=== PATIENT | female | born 1950 | race Caucasian/White ===

== ENCOUNTER → 2017-08-10 | Outpatient (CLI) | payer BC ==
[~2017-08-10] MED LIST: CALC500C70 PO; CIPR-255 PO; SULF400T7 PO; SUMA50TA15 PO
--- NOTE | 2017-08-11 07:46 | MAMMOGRAPHY REPORT ---
BILATERAL DIGITAL SCREENING MAMMOGRAM TOMOSYNTHESIS WITH CAD: 08/10/2017 CLINICAL HISTORY: Routine screening. Patient has no complaints. TECHNIQUE: Breast tomosynthesis in addition to standard 2D mammography was performed. Current study was also evaluated with a Computer Aided Detection (CAD) system. COMPARISON: Comparison is made to exams dated: 08/09/2016 mammogram, 08/05/2015 mammogram, 07/04/2014 mammogram, 07/02/2013 mammogram, 06/30/2012 mammogram, and 12/15/2010 mammogram - [facility] enter. BREAST COMPOSITION: There are scattered areas of fibroglandular density in both breasts. FINDINGS: An asymmetry in the posterior right breast along the posterior nipple line on the CC view a ppears similar on all available prior mammograms dating back to at least 2006, therefore likely benig n. No new suspicious mass, architectural distortion or cluster of microcalcifications is seen. IMPRESSION: ACR BI-RADS CATEGORY 1: NEGATIVE There is no mammographic evidence of malignancy. A 1 year screening mammogram is recommended. The pa tient will receive written notification of the results. Approximately 10% of breast cancers are not detected with mammography. A negative mammographic report should not delay biopsy if a clinically suggestive mass is present. Dee Gaston M.D. ay/:08/10/2017 08:56:28 Concrete Gun Operator: Wendy Jacinto, [facility] letter sent: Normal 1/2 BI-RADS Code: ACR BI-RADS Category 1: Negative
== END | disposition home or self-care (01) ==
LOC: C.MAMM 07:53
PROVIDERS: ATTEND Family Medicine
DX: Z12.31 Encounter for screening mammogram for malignant neoplasm of breast (principal)

== ENCOUNTER 2019-07-11 09:56 | Inpatient (IN) ==
--- NOTE | 2019-07-10 14:36 | Anesthesiology Consultation ---
Date of Service July 10, 2019 Assessment & Plan (1) Kidney stone: (2) Encounter for pre-operative examination: Chart Review Chart Review: Acceptable Risk for Surgery and Pending: Refer to Additional Notes / Consult section (Testing to be done AM of surgery CBC,PRP,EKG) Consults Requested none History Surgery Operation Date: 07/11/19 12:00 Proposed Procedures p Right Trimalleolar Ankle Fracture External Fixator Placement, - James Rivero MD s Possible Open Reduction Internal Fixation - James Rivero MD Allergies Allergy/AdvReac Type Severity Reaction Status Date / Time shellfish derived Allergy Unknown Unknown Verified 07/10/19 10:44 morphine AdvReac Severe nausea/vomi Unverified 07/10/19 11:29 ting Medications Home Medications Medication Instructions Recorded Confirmed Last Taken doxycycline hyclate 50 mg PO BID 07/07/19 07/10/19 Unknown tramadol [Ultram] 50 mg PO Q8H PRN #14 tab 07/07/19 07/10/19 Unknown Past Medical History Medical History Kidney stone (Chronic) Pyelonephritis (Chronic) Depression GERD (gastroesophageal reflux disease) Migraine headache Psoriasis Sjogrens syndrome Past Family History Family History Other No significant family history Past Surgical History Surgical History History of dental surgery History of facial surgery History of shoulder surgery Social History Smoking Status: Never smoker Hx Substance Use: No substance use type: does not use
[~2019-07-11 09:56] MED LIST changes: -CALC500C70 PO; +CEFAZOLIN 2000MG 2,000 MG/15 ML SYR IV SCH; -CIPR-255 PO; +LR 15ML/HR IV SCH; +ROPIVACAINE 0.5% 5 MG/ML 30 ML VIAL ONE; -SULF400T7 PO; -SUMA50TA15 PO
[2019-07-11] MEDS ORDERED: ROCURONIUM BROMIDE 10 MG/ML 5 ML VIAL ONE (11:13)
[2019-07-11] MEDS ORDERED: PROPOFOL IV EMULSION 10 MG/ML 20 ML VIAL IV ONE (11:13)
[2019-07-11] MEDS ORDERED: LIDOCAINE HCL 2% 2 ML VIAL/AMP(20MG/ML) INFIL ONE (11:13)
[2019-07-11] MEDS ORDERED: fentaNYL citrate 100 MCG/2 ML VIAL ONE ×2 (11:13→13:03)
[2019-07-11] MEDS ORDERED: MIDAZOLAM HCL 1 MG/ML 2ML VIAL ONE ×2 (11:13→11:48)
[2019-07-11] MEDS ORDERED: ONDANSETRON INJ 2 MG/ML 2 ML VIAL ONE ×2 (11:13→14:01)
[2019-07-11] MEDS ORDERED: LABETALOL HCL IV 5 MG/ML 20ML IV PRN (11:16)
[2019-07-11] MEDS ORDERED: ONDANSETRON INJ 2 MG/ML 2 ML VIAL IV PRN ×2 (11:16→14:18)
[2019-07-11] MEDS ORDERED: ATROPINE SULFATE 0.1 MG/ML 10ML SYR IV PRN (11:16)
[2019-07-11] MEDS ORDERED: KETOROLAC 30 MG/ML VIAL IV PRN (11:16)
[2019-07-11 11:19] LABS: BUN Creatinine Ratio 19.9 (10-20); Calcium 9.5 mg/dl (8.5-10.1); Creatinine Clr Calc Pharmacy 57.2 ml/min; Est GFR (African American) 72.7; Est GFR (Non-African American) 62.7; Potassium 3.9 mmol/L (3.5-5.1)
[2019-07-11 11:21] LABS: Hematocrit (blood only) 36.9 % (37-47); Hemoglobin 12.5 g/dL (12.0-16.0); Mean Corpuscular Hemoglobin 31.3 pg (25-34); Mean Corpuscular Volume 92.5 fL (80-100); Mean Platelet Volume 10.2 fL (7.4-10.4); Platelet Count 150 K/uL (130-400); RDW Standard Deviation 43.8 fL (36.4-46.3); Red Blood Count 3.99 M/uL (4.2-5.4); White Blood Count 4.72 K/uL (4.8-10.8)
[2019-07-11 11:22] LABS: Mean Corpuscular Hgb Conc 33.9 g/dL (32-36)
[2019-07-11] MEDS ORDERED: HYDROmorphone INJ 2 MG/ML SYR/VIAL ONE (11:32)
--- NOTE | 2019-07-11 11:50 | History & Physical Bridge Note ---
Date of Service July 11, 2019 History & Physical Bridge Note I have examined the patient, reviewed the History & Physical and in the interval since the performance of the History & Physical I have noted the following changes of clinical significance: no changes noted
[2019-07-11] MEDS ORDERED: DEXAMETHASONE SOD INJ 4 MG/ML VIAL ONE (14:01)
--- NOTE | 2019-07-11 14:14 | Post Operative Brief Note ---
Immediate Post Op Note v1 Date of Surgery July 11, 2019 Pre & Post Diagnosis Operation Date: 07/11/19 12:00 Pre-Op Diagnosis: Right Trimalleolar Ankle Fracture Post-Op Diagnosis: Right Trimalleolar Ankle Fracture Procedure Operation Date: 07/11/19 12:00 Actual Procedures p Right Trimalleolar Ankle Fracture External Fixator Placement(Right) - James Rivero MD Surgeon James Rivero MD Key Account Manager Azael Montgomery MD and WARNER Andrews PA-C Estimated Blood Loss 5 Findings Consistent with Post-Op Diagnosis Fluids 600 cc Anesthesia Type General Complications none Disposition Accompanied Patient To Recovery: No Disposition: Recovery Room
[2019-07-11] MEDS ORDERED: ALUMINUM/MAGNESIUM SUSP 30 ML UDC PO PRN (14:18)
[2019-07-11] MEDS ORDERED: NALOXONE HCL 0.4 MG/1 ML VIAL/CARP IV PRN (14:18)
[2019-07-11] MEDS ORDERED: OXYCODONE HCL IR 5 MG TAB (IMMEDIATE RELEASE) PO PRN (14:18)
[2019-07-11] MEDS ORDERED: TRAMADOL HCL 50 MG TABLET PO PRN ×2 (14:18→14:27)
[2019-07-11] MEDS ORDERED: MAGNESIUM HYDROXIDE SUSP 30 ML UDC PO PRN (14:18)
[2019-07-11] MEDS ORDERED: BISACODYL 10 MG SUPP PR PRN (14:18)
[2019-07-11] MEDS ORDERED: METOCLOPRAMIDE HCL INJ 5 MG/ML 2 ML VIAL IV PRN (14:18)
[2019-07-11] MEDS ORDERED: DiphenhydrAMINE HCL 50 MG/ML VIAL IV PRN (14:18)
--- NOTE | 2019-07-11 14:18 | Operative Report ---
Post Operative Report Pre & Post Diagnosis Operation Date: 07/11/19 12:00 Pre-Op Diagnosis: Right Trimalleolar Ankle Fracture Post-Op Diagnosis: Right Trimalleolar Ankle Fracture Procedure Operation Date: 07/11/19 12:00 Actual Procedures p Right Trimalleolar Ankle Fracture External Fixator Placement(Right) - James Rivero MD Surgeon James Rivero Community Health Worker Azael Montgomery MD and WARNER Andrews PA-C Estimated Blood Loss 5 Findings Consistent with Post-Op Diagnosis Specimens none Complications none Disposition Accompanied Patient To Recovery: Yes Disposition: Recovery Room Description of Procedure I was present during the entire case assisting with positioning and dressing application. Please see Dr. Rivero procedure note for specifics of the case. I attest to the content of the Intraoperative Record and any orders documented therein. Any exceptions are noted below.
[2019-07-11] MEDS ORDERED: NON-FORMULARY MEDICATION (Docusate Sodium [Stool Softener] 50 MG) PO PRN (14:27)
--- NOTE | 2019-07-11 14:27 | Operative Report ---
Post Operative Report Pre & Post Diagnosis Operation Date: 07/11/19 12:00 Pre-Op Diagnosis: Right Trimalleolar Ankle Fracture Post-Op Diagnosis: Right Trimalleolar Ankle Fracture Procedure Operation Date: 07/11/19 12:00 Actual Procedures p Right Trimalleolar Ankle Fracture External Fixator Placement(Right) - James Rivero MD Surgeon James Rivero MD Research Computing Specialist Azael Montgomery MD and WARNER Andrews PA-C Estimated Blood Loss 5 Findings Consistent with Post-Op Diagnosis Specimens None Complications none Disposition Accompanied Patient To Recovery: Yes Disposition: Recovery Room Indications 68 years a pleasant woman with right ankle fracture dislocation Description of Procedure Supine position, standard prep and drape, timeout for patient safety, under fluoroscopic control, external fixator of right ankle was performed. Please see Dr. Rivero's procedure notes for specific details. I was present throughout the procedure and assisted for transferring the patient to PACU in stable condition. I attest to the content of the Intraoperative Record and any orders documented therein. Any exceptions are noted below.
[2019-07-11] MEDS ORDERED: SODIUM CHLORIDE 0.9% 1000ML 1,000 ML IV SCH (14:30)
--- NOTE | 2019-07-11 14:30 | Fluoroscopy Report ---
FL ankle RT min 3V RTN CLINICAL HISTORY: 68 years-old Female presenting with ORIF RIGHT TRIMALLEOLAR FX, EX FIX VS. ORIF. TECHNIQUE: 4 fluoroscopic image(s) recorded as part of an intraoperative procedure. COMPARISON: Plain radiographs from 07/10/2019. FINDINGS/IMPRESSION: There has been interval reduction of the prior medially displaced tibia. Slight residual one half sha ft width displacement at the distal metaphyseal fracture of the fibula is unchanged. The ankle mortis e does not demonstrate residual malalignment. Posterior malleolar fracture also noted as well as a tr ansversely oriented medial malleolar fracture. Please see surgical report for further details. Fluoroscopy dosage (mGy): 2.10. Fluoroscopy time: 64.8 seconds. Number or time of high level fluoroscopy (HLF), digital spot, or digital subtraction images: 0. Electronically signed by: James Cleary M.D. 07/11/2019 2:28 PM
[2019-07-11] MEDS: HYDROmorphone INJ 1 MG/ML SYRINGE IV PRN ×4 (14:49→15:04)
--- NOTE | 2019-07-11 14:53 | XRay Report ---
XR ankle RT 2V CLINICAL HISTORY: post op External fixation Rt ankle (PACU) COMPARISON: 07/10/2019 DISCUSSION: Evidence for placement of an external fixator. Trimalleolar fractures again noted. Improv ed alignment of the ankle mortise. Persistent distraction of the distal fibular fracture by an estima rachel 8 mm. There is no evidence for soft tissue swelling. IMPRESSION: Improved alignment post placement of an external fixator. Persistent distraction of the d istal fibular fracture The above report was generated using voice recognition software. It may contain grammatical, syntax or spelling errors. Electronically signed by: Bj Weaver M.D. 07/11/2019 2:52 PM
--- NOTE | 2019-07-11 15:20 | Operative Report ---
DATE OF OPERATION: 07/11/2019 PREOPERATIVE DIAGNOSIS: Unstable trimalleolar right ankle fracture. POSTOPERATIVE DIAGNOSIS: Unstable trimalleolar right ankle fracture. OPERATIONS PERFORMED: Closed reduction and external fixation of unstable trimalleolar right ankle fracture. SURGEON: James Rivero MD. ADOLESCENT PSYCHIATRIST: Dr. Rizwana Montgomery and MUSTAPHA Julien. ESTIMATED BLOOD LOSS: 5 mL. IV FLUIDS: 600 mL crystalloid. SPECIMENS: None. COMPLICATIONS: None. IMPLANTS: Synthes external fixator pins including two 5 mm self drilling pins, one 6 mm cancellous calcaneal pin and two 3 mm self drilling pins. Various pin-to-bar and bar-to-bar clamps were used as well. INDICATIONS: The patient is a 68-year-old female who fell at home sustaining an unstable trimalleolar ankle fracture dislocation. She has a medical history significant for osteoporosis and Sjogren syndrome. She was seen in the Emergency Room and underwent a closed reduction and splint placement over the weekend. She presented to my clinic yesterday at which point she was found to have redislocated her ankle. She had to be transported by ambulance back to the Emergency Room where she underwent a second closed reduction under conscious sedation. Unfortunately, post reduction films showed that she continued to have lateral subluxation of the talus underneath the tibia. Additionally, she has large fracture blisters along the medial aspect of the ankle from tenting of the skin as well as the injury. I therefore recommended external fixator placement to reduce the fracture and hold it in an anatomically reduced position to allow the soft tissues to heal at which point she will be ready for definitive fixation in approximately 10-14 days from now. After reviewing all the risks and benefits of surgery, the patient elected to proceed. All questions were answered. Informed consent was signed. DESCRIPTION OF THE OPERATION: The patient was identified in the preoperative holding area where her surgical site was marked. She was brought back to main Operating Room where she was placed on the Operating Room table and general anesthesia was administered. All bony prominences were padded. Perioperative antibiotics were administered. She was prepped and draped in normal sterile fashion. Prior to incision, a multidisciplinary timeout was called. All in the room were in agreement. We began by placing our calcaneal pin. A small stab incision was made on the lateral aspect of the calcaneal tuberosity. Hemostat was used to dissect down directly on to bone. A soft tissue sleeve was then placed through the incision and a 6 mm calcaneal pin was then drilled across the calcaneus from lateral to medial. A small ryan in the skin was made where the skin was being tented to allow the pin to pass all the way through. We checked that the threads were engaging the entirety of the calcaneus on the AP fluoroscopic x-ray, which was confirmed. Next, two 5 mm pins were placed on the tibia using a soft tissue sleeve in bicortical fashion. Again, this was checked under fluoroscopy. We then attached our pin-to-bar clamps to our pins and attached a radiolucent carbon fiber bars. We then reduced the fracture. We were able to obtain a good reduction under fluoroscopy. However, as soon as we released the manual manipulation, the fracture fell posteriorly. This necessitated further pins into the forefoot. We therefore made a small stab incision over the fifth metatarsal neck and placed a 3 mm pin into the fifth metatarsal in bicortical fashion. Another bicortical pin was placed on the neck of the first metatarsal through a small stab incision. These were then attached using pin-to-bar and radiolucent bars while holding the foot in a plantigrade position. Once the clamps were tightened down, she now stayed in a perfectly anatomically reduced position. At this point, the patient's clamps were all tightened down so that there would be no chance of them loosening. We rechecked our fluoroscopy, which was unchanged. The patient's pin sites were then cleaned and covered with Betadine soaked 4 x 4's. She was awoken from anesthesia and transferred to Recovery Room in stable condition. POSTOPERATIVE COURSE: The patient will be admitted overnight for pain control as well as to be taught pin cares. She will be on Xarelto for DVT prophylaxis. We will plan on definitive fixation next Tuesday pending a skin check. Due to the posterolateral instability, we will plan on a prone position fixing the posterior malleolus fracture and likely stabilizing the syndesmosis and the medial malleolus all at the same time. I attest to the content of the Intraoperative Record and any orders documented therein. Any exception s are noted below.
[2019-07-11] MEDS: KETOROLAC TROMETHAMINE 15 MG/ML VIAL IV SCH ×2 (17:26→23:42)
--- NOTE | 2019-07-11 17:36 | CT Scan Report ---
CT ankle RT wo con CT DOSE: 364.95 mGy.cm HISTORY: Post op external fixation Rt ankle TECHNIQUE: Multiaxial CT images of the right ankle were performed and reformatted in the sagittal and coronal plane without the use of contrast. A dose lowering technique was utilized adhering to the p rinciples of MEGHANN. COMPARISON: 07/10/2019. 07/11/2019 FINDINGS: Findings consistent with an external fixator placed from the proximal tibia to the calcaneu s. There is a trimalleolar fracture of the right ankle. There is oblique slightly comminuted fracture of the distal fibular shaft. There is estimated displac ement of 6 mm in the anterior to posterior projection and on the lateral projection maximum displacem ent of 5 mm. There is an ossific fragment anterior to the distal aspect of the fibula measuring 1 cm in greatest d imension. The ankle mortise is again aligned anatomically. There is avulsion of the medial malleolus the maximu m bony separation of 6 mm. Fracture of the posterior malleolus has a maximum dimension of 2 x 1 cm. It has a maximum posterior d istraction of 5 mm. No additional acute bony abnormalities appreciated. There are findings of generalized soft tissue edematous change. The subtalar joint appears to be intact. There is no evidence for loose bony fragment within the joint space. IMPRESSION: 1. Trimalleolar fracture right ankle with an external fixating device in position. 2. The ankle mortise is aligned appropriately. 3. Mild distraction of the fracture of the medial malleolus of 5 mm, distraction of the distal fibula 6 mm, and distraction of the posterior malleolar fracture of 5 mm The above report was generated using voice recognition software. It may contain grammatical, syntax or spelling errors. Electronically signed by: Bj Weaver M.D. 07/11/2019 5:34 PM
[2019-07-11] MEDS: SENNA 8.6 MG TAB PO SCH (20:12)
[2019-07-11] MEDS: DOCUSATE SODIUM 100 MG CAP PO SCH (20:13)
[2019-07-11] MEDS: CEFAZOLIN 2000MG 2,000 MG/15 ML SYR IV SCH (20:13)
[2019-07-11] MEDS: ACETAMINOPHEN 500 MG TAB PO SCH (20:13)
[2019-07-12] MEDS: CEFAZOLIN 2000MG 2,000 MG/15 ML SYR IV SCH (03:59)
[2019-07-12] MEDS: ACETAMINOPHEN 500 MG TAB PO SCH ×3 (05:58→20:39)
[2019-07-12] MEDS: KETOROLAC TROMETHAMINE 15 MG/ML VIAL IV SCH ×2 (05:58→12:42)
[2019-07-12 07:08] LABS: Hematocrit (blood only) 33.2 % (37-47); Hemoglobin 11.2 g/dL (12.0-16.0); Mean Corpuscular Hemoglobin 30.8 pg (25-34); Mean Corpuscular Hgb Conc 33.7 g/dL (32-36); Mean Corpuscular Volume 91.2 fL (80-100); Platelet Count 143 K/uL (130-400); RDW Coefficient of Variation 12.7 % (11.5-14.5); RDW Standard Deviation 42.1 fL (36.4-46.3); Red Blood Count 3.64 M/uL (4.2-5.4); White Blood Count 4.65 K/uL (4.8-10.8)
[2019-07-12 07:35] LABS: BUN Creatinine Ratio 21.8 (10-20); Calcium 9.2 mg/dl (8.5-10.1); Creatinine Clr Calc Pharmacy 54.3 ml/min; Est GFR (African American) 68.2; Est GFR (Non-African American) 58.9; Potassium 4.3 mmol/L (3.5-5.1)
[2019-07-12] MEDS ORDERED: dexAMETHasone 4 MG TAB PO SCH (08:00)
[2019-07-12] MEDS: DOCUSATE SODIUM 100 MG CAP PO SCH ×2 (08:22→20:39)
[2019-07-12] MEDS: RIVAROXABAN 10 MG TABLET PO SCH (08:23)
[2019-07-12] MEDS: MULTIVITAMIN TAB PO SCH (08:23)
[2019-07-12] MEDS: DOXYCYCLINE HYCLATE 50 MG CAP PO SCH (08:23)
[2019-07-12] MEDS ORDERED: MULTIVITAMIN TAB PO SCH (09:00)
--- NOTE | 2019-07-12 09:42 | Anesthesiology Progress Note ---
Date of Service July 12, 2019 Anesthesia Post Procedure Vital Signs Vital Signs: Temp Pulse Pulse Resp BP Pulse Ox 07/12/19 07:26 36.7 C 55 L 18 161/94 H 96 07/12/19 03:34 36.6 C 60 16 148/81 H 97 07/11/19 23:30 36.6 C 58 L 16 132/84 96 07/11/19 19:31 36.8 C 74 16 128/84 97 07/11/19 18:31 37 C 77 16 119/73 96 07/11/19 17:40 37.3 C 73 16 134/82 96 07/11/19 16:35 36.4 C L 78 16 139/85 100 07/11/19 16:07 37.6 C H 75 16 147/81 H 98 07/11/19 15:35 36.9 C 66 16 153/89 H 99 07/11/19 15:15 36.5 C 65 15 165/89 H 98 07/11/19 15:05 67 15 163/93 H 98 07/11/19 14:55 72 15 159/97 H 100 07/11/19 14:45 72 15 156/93 H 98 07/11/19 14:35 83 15 136/91 98 07/11/19 14:25 37 C 74 14 140/88 100 07/11/19 10:33 36.6 C 66 18 177/95 H 98 Notes Mental Status: alert / awake / arousable and participated in evaluation Nausea / Vomiting: adequately controlled Pain: adequately controlled Airway Patency, RR, SpO2: stable & adequate BP & HR: stable & adequate Hydration State: stable & adequate
--- NOTE | 2019-07-12 15:24 | Orthopedic Progress Note ---
Date of Service July 12, 2019 Assessment & Plan (1) Fracture of distal end of right tibia: PT/OT while in patient Consult case management for home health eval Pain control with PO meds DVT prophy with Xarelto and TEDs Dressings changed Non weight bearing on Right LE with walker or wheelchair Plan on discharge home tomorrow after AM PT/OT (2) Fracture of distal end of fibula: Subjective This 68 yo F is day 1 s/p external fixation placement for a displaced Right trimalleolar fracture. Her pain is well controlled with oral meds. He has had some issues with bleeding from the incision sites when ambulatory and also has had some difficulty ambulating with walker assistance. She denies CP, SOB, nausea, vomiting, fever, chills, sweats, or numbness/tingling in her toes. Review of Systems Review of Systems: All systems reviewed & are unremarkable except as noted in HPI & below Physical Exam Physical Exam: Right lower leg: Rods and pins in correct position. Minimal bleeding from incision sites. Knee ROM 0-90 actively. Calf soft and supple. TTP over dorsal surface of ankle. Toes mobile. Fracture blister over medial malleolus still intact without drainage. NV intact. Periph pulses palpable. Cap refill < 2 seconds. Quad strength 2/5. Results & Data Vital Signs (Past 12 Hours) Vital Signs Temp Pulse Resp BP Pulse Ox 07/12/19 11:07 36.9 C 69 18 164/89 H 99 07/12/19 07:26 36.7 C 55 L 18 161/94 H 96 07/12/19 03:34 36.6 C 60 16 148/81 H 97 Laboratory Results 07/12/19 07/12/19 07/11/19 Range/Units 06:38 06:38 10:45 WBC 4.65 L (4.8-10.8) K/uL RBC 3.64 L (4.2-5.4) M/uL Hgb 11.2 L (12.0-16.0) g/dL Hct 33.2 L (37-47) % MCV 91.2 (80-100) fL MCH 30.8 (25-34) pg MCHC 33.7 (32-36) g/dL RDW Std Deviation 42.1 (36.4-46.3) fL RDW Coeff of Dino 12.7 (11.5-14.5) % Plt Count 143 (130-400) K/uL MPV 10.0 (7.4-10.4) fL Sodium 141 (136-145) mmol/L Potassium 4.3 (3.5-5.1) mmol/L Chloride 108 H (98-107) mmol/L Carbon Dioxide 26 (21-32) mmol/L Anion Gap 7.0 (3-11) BUN 21 H (7-18) mg/dl Creatinine 0.98 (0.6-1.2) mg/dl Est Cr Clr Drug Dosing 54.3 ml/min Est GFR ( Amer) 68.2 Est GFR (Non-Af Amer) 58.9 BUN/Creatinine Ratio 21.8 H (10-20) Glucose 92 (70-99) mg/dl Calcium 9.2 (8.5-10.1) mg/dl Hepatitis C Ab Screen Neg (Neg) (1) Fracture of distal end of right tibia Encounter type: initial encounter Fracture morphology: unspecified fracture morphology Fracture type: closed Qualified Code(s): S82.301A - Unspecified fracture of lower end of right tibia, initial encounter for closed fracture (2) Fracture of distal end of fibula Encounter type: initial encounter Fracture morphology: other fracture Fracture type: closed Laterality: right Qualified Code(s): S82.831A - Other fracture of upper and lower end of right fibula, initial encounter for closed fracture
[2019-07-12] MEDS: SENNA 8.6 MG TAB PO SCH (20:39)
[2019-07-13] MEDS: ACETAMINOPHEN 500 MG TAB PO SCH ×2 (05:12→13:37)
--- NOTE | 2019-07-13 07:36 | Orthopedic Progress Note ---
Date of Service July 13, 2019 Assessment & Plan (1) Fracture of distal end of right tibia: PT/OT today Consult case management for home health eval Pain control with PO meds DVT prophy with Xarelto and TEDs Non weight bearing on Right LE with walker or wheelchair Plan on discharge home today after AM PT/OT (2) Fracture of distal end of fibula: Subjective POD 2 s/p external fixation placement for a displaced Right trimalleolar fractur e. Her pain is well controlled with oral meds. She denies CP, SOB, nausea, vomiting, fever, chills, sweats, or numbness/tingling in her toes. Seen by caser up who is setting up home health. Physical Exam Physical Exam: Dressing c/d/i. Distally NVI. Results & Data Vital Signs (Past 12 Hours) Vital Signs Temp Pulse Resp BP Pulse Ox 07/12/19 22:03 36.6 C 60 16 141/86 H 96 (1) Fracture of distal end of right tibia Encounter type: initial encounter Fracture morphology: unspecified fracture morphology Fracture type: closed Qualified Code(s): S82.301A - Unspecified f racture of lower end of right tibia, initial encounter for closed fracture (2) Fracture of distal end of fibula Encounter type: initial encounter Fracture morphology: other fracture Fracture type: closed Laterality: right Qualified Code(s): S82.831A - Other fracture of upper and lower end of right fibula, initial encounter for closed fracture
[2019-07-13] MEDS: DOCUSATE SODIUM 100 MG CAP PO SCH (08:29)
[2019-07-13] MEDS: MULTIVITAMIN TAB PO SCH (08:30)
[2019-07-13] MEDS: RIVAROXABAN 10 MG TABLET PO SCH (08:31)
[2019-07-13] MEDS: DOXYCYCLINE HYCLATE 50 MG CAP PO SCH (09:17)
--- NOTE | 2019-07-16 12:42 | Discharge Summary ---
Date of Service July 16, 2019 Admission HPI Per Admitting Provider HISTORY OF PRESENT ILLNESS: This 68-year-old female seen in our clinic today for initial evaluation by Dr. Rivero. She sustained a fracture dislocation of the right ankle on Tuesday night after slipping in her bathroom, preceded to Emergency Department, had the fracture reduced and was placed to an Orthoglass posterior short leg U splint. Upon arriving in our clinic today, this was removed and it was noted the patient was again dislocated. She was transferred from our clinic to the Emergency Department via ambulance after U splint was placed. She was seen in the ED, was placed in a consultation and had her ankle fracture reduced and was placed into a molded plaster U posterior short leg splint. Due to instability, the patient will undergo an external fixator placement on the right ankle, has 23-hour observation admits tomorrow afternoon. Admission Exam Per Admitting Provider PHYSICAL EXAMINATION: SKIN: The patient has a fracture blister over the medial malleolus of the right ankle that is fluid filled. Otherwise, her skin is normal in appearance. No open skin lesions or discharge. EYES: Pupils are equal and reactive to light and accommodation. Extraocular movements are intact. THROAT: Posterior pharynx is clear with absence of edema, erythema or exudate. CARDIOVASCULAR: The patient has a regular rate and rhythm. No murmurs or gallops appreciated. LUNGS: Auscultation of the lung chan reveals clear breath sounds throughout. No wheezing, rales or rhonchi. ABDOMEN: Mildly obese, nondistended, nontender with normoactive bowel sounds. EXTREMITIES: Right ankle. The patient has a moderate size fracture blister over the medial malleolus. There is edema and ecchymosis distal to the medial and lateral malleoli. The patient is neurovascularly intact. In the right lower extremity, her calf is soft and supple, nontender to palpation. Her peripheral pulses are easily palpable. Cap refill less than 2 seconds. She has appropriate mobility of her digits. Ankle range of motion was not tested due to the instability and the fracture. NEUROLOGIC: Cranial nerves II-XII are intact. No motor or sensory deficit. PSYCHOLOGICAL/GENERAL: The patient is alert and oriented x3 with proper grooming and hygiene. Principal Diagnosis Right ankle trimalleolar fracture Discharge Exam Dressing c/d/i. Distally NVI. Discharge Data Allergies Allergy/AdvReac Type Severity Reaction Status Date / Time morphine Allergy Severe pyschosis Unverified 07/10/19 15:46 & hallucinations shellfish derived AdvReac Mild nausea and Verified 07/11/19 10:27 vomiting Consultations 07/11/19 14:18 Consult Case Management - Discharge Planning Routine 07/12/19 15:13 Consult Case Management - Discharge Planning Routine Procedures Performed Operation Date: 07/11/19 12:00 Actual Procedures p Right Trimalleolar Ankle Fracture External Fixator Placement(Right) - James Rivero MD Ordered Studies 07/11/19 12:00 FL ankle RT min 3V RTN Routine FL fluoroscopy <1hr Routine 07/11/19 17:00 CT ankle RT wo con Routine Hospital Course (1) Fracture of distal end of right tibia: Patient had 2 night stay following surgery. Pain well controlled with PO meds. Recommended Home Health for dressing changes every other day. Will follow up next week for preop H&P for ORIF. PT/OT today Consult case management for home health eval Pain control with PO meds DVT prophy with Xarelto and TEDs Non weight bearing on Right LE with walker or wheelchair Plan on discharge home today after AM PT/OT (2) Fracture of distal end of fibula: Total Time Total Time Spent Total Time Spent (In Minutes): 45 mins Total Time Includes: Examination of the Patient, Discharge Planning and Medication Reconciliation Discharge Plan Discharge Items Patient Disposition: Home - Home Health Services Reason For Visit: Right Trimalleolar Ankle Fracture Discharge Diagnosis: Right Trimalleolar Ankle Fracture Condition on Discharge: Good Activity: As commented below Lifting: None Bathing: Keep incision dry Bathing Comment: May shower tomorrow Sexual Activity: Wait until after follow-up appointment Exercise/Sports: Wait until after follow-up appointment Driving/Machine Use: no driving until cleared by site acquisition specialist Weightbearing: Right non-weightbearing Weightbearing Comment: with walker or wheelchair assistance Non-emergency contact: Primary Care Provider and Surgeon Call non-emergency contact if: you have any medication questions, your pain is not controlled, your temperature is above 101.5, your wound has increased redness and your wound has increased drainage Follow-up/Referrals: Brady Waller MD [Primary Care Provider] - Diet: Regular Addtl Attending Provider Instructions: Post-operative Instructions Dear Patient and Family/Friends, Before you are discharged from the hospital, it is important to know what to expect when you get home after surgery. To that end, we have created this sheet of discharge instructions which covers many commonly asked questions. Make sure you go through this sheet in its entirety with your nurse before you are discharged. Please note that we will go over the specifics of your surgery and recovery when you return for your first post-operative visit. Sincerely, Dr. Rivero Pain Expect to be in a fair amount of pain after surgery. Remember, our goal is not to eliminate your pain, but to make it tolerable. It is a good idea to stay ahead of your pain by taking the medications you were prescribed once you get home. Typically, the pain starts improving 3-7 days after surgery. You should start weaning off the narcotic pain medication (oxycodone, hydrocodone, hydromorphone, morphine) as soon as your pain improves. Please call our office if your pain is not adequately controlled. Ice Ice your operative site at least 5 times a day for 15-30 minutes at a time. Make sure you have a thin cloth between the ice or cooling unit and your skin to prevent ni bite. This is especially important if you received a nerve block. Continue icing your operative site for the first 5-7 days after surgery, then as needed. Diet/Nausea/Vomiting Start by drinking clear liquids and eating crackers. If you can tolerate this, then you may resume your normal diet. If you feel nauseated or vomit, take Zofran/ondansetron (if prescribed). Please call our office if you have intractable nausea or vomiting, or, if after hours, you may go to the Emergency Room for help. Constipation Constipation is a common side effect of narcotic pain medication. If you have not had a bowel movement within 2 days after surgery, we recommend purchasing an over the counter laxative such as Milk of Magnesia, Dulcolax, or Miralax from a local pharmacy, and taking it as instructed. Call our clinic if any questions. Weight bearing and Range of Motion. Do not bear any weight through your operative extremity immediately after surgery. If you had upper extremity surgery, do not lift anything with that arm. If you are in a knee brace, keep it locked in place until your follow-up. We will discuss your weight bearing, range of motion, and lifting restrictions in detail at your first post-operative appointment. Continuous Passive Motion (CPM) Machine If you were prescribed a CPM machine, it will start after your first post- operative appointment, at which time we will give you instructions on the range of motion settings and duration of treatment Physical therapy You will be given a prescription for physical therapy or occupational therapy at your first post-operative appointment. Typically, patients start therapy within 1 week of surgery Wound care and showering We will inspect your wound at your first post-operative visit, and may do a dressing change at that time. Most patients will be in a water-proof dressing that is removed 14 days after surgery. It is normal to see some dried blood on the dressing. Do not remove your dressing, paper strips or sutures yourself unless you are given permission. Showering is allowed the day after surgery. Do not scrub or remove any dressings. The wound should not be submerged underwater (i.e. in a bathtub or pool) until 4 weeks after surgery TAMRA stockings If you were given white stockings, these are to be worn at all times except to shower (on both legs) for the first 2 weeks after surgery. Driving You may not drive while taking narcotic pain medication or while in a cast, splint, sling or brace. You, the patient, need to make the final determination about when you are safe to drive, however, the earliest you may consider driving after surgery is below: Hand/Wrist/Elbow Surgery: 3 days Shoulder Surgery: 2 weeks Hip,/Knee/Ankle Surgery: 4 weeks Fracture repair: 6 weeks Return to Work Your return to work depends on what surgery was done and what type of work you do. Please bring any paperwork your employer needs completed to your first post-operative visit. Also, bring a description of your job duties, as this helps us to understand what risks you may face at work. Travel Avoid long distance travel (greater than 1 hour) in airplanes and cars for the first 6 weeks after surgery. If you must travel, you need to have a Doppler ultrasound done before you travel to rule out a blood clot in your legs. Follow-up You should have a follow-up appointment already scheduled 1-2 days after halina william. If not, please contact our office to make this appointment before you leave the hospital. When to call the office It is normal to have swelling and bruising in the limb that was operated on. This will improve with time. It is also normal to have fevers for the first 2 days after surgery. Reasons you should call your doctor include: Uncontrolled pain; Nausea, vomiting, or constipation that does not improve with medication; Fevers over 101.5, chills, sweats; Drainage or bleeding from the wound; Foul odor; Spreading areas of redness; Any other concerns Pending Studies at Discharge: Yes (CT scan of Rt ankle) Stand-Alone Forms: [facility], Opioid Pain Management Medications and DC Order Prescriptions: New Xarelto 10 mg tablet 10 mg PO DAILY Qty: 7 RF: 0 oxycodone 5 mg tablet 5 mg PO Q6H MDD 2 tabs every 4-6 hrs as needed Qty: 20 RF: 0 Continued doxycycline hyclate 50 mg Capsule 50 mg PO DAILY RF: 0 tramadol [Ultram] 50 mg tablet 50 mg PO Q8H PRN (Reason: pain) Qty: 14 RF: 0 ibuprofen [Advil] 200 mg Tablet 200 - 400 mg PO BID PRN (Reason: Pain) RF: 0 multivitamin Tablet 1 tab PO DAILY RF: 0 Stool Softener 50 mg Capsule 50 mg PO DAILY PRN (Reason: Constipation) RF: 0 Discharge Orders: Discharge Order (Routine); Ordered 07/12/19 Ordered By: Barrie Herring/Other Patient Handouts: Surgery Prevent DVT After Admission Data Admit Date/Time: 07/11/19 14:18 Attending Provider: James Rivero Admit Provider: James Rivero Primary Care Provider: Brady Waller Other Interventions: Discharge Summary Assessment (RN) Last Done: 07/13/19 10:55 DC Date/Time DO NOT enter until pt leaves facility: 07/13/19 15:52
--- NOTE | 2019-07-19 08:15 | Anesthesiology Consultation ---
Date of Service July 19, 2019 Assessment & Plan (1) Encounter for pre-operative examination: Chart Review Chart Review: Acceptable Risk for Surgery History Surgery Operation Date: 07/11/19 12:00 Proposed Procedures p Right Trimalleolar Ankle Fracture External Fixator Placement, - Jaems Rivero MD s Possible Open Reduction Internal Fixation - James Rivero MD Height/Weight Height: 5 ft 8 in Weight: 63.503 kg Allergies Allergy/AdvReac Type Severity Reaction Status Date / Time morphine Allergy Severe pyschosis Unverified 07/18/19 13:49 & hallucinations shellfish derived AdvReac Mild nausea and Verified 07/18/19 13:49 vomiting Medications Home Medications Medication Instructions Recorded Confirmed Last Taken doxycycline hyclate 50 mg PO QAM 07/07/19 07/18/19 07/06/19 22:00 tramadol [Ultram] 50 mg PO Q8H PRN #14 tab 07/07/19 07/18/19 07/10/19 20:30 multivitamin 1 tab PO DAILY 07/10/19 07/18/19 07/01/19 Stool Softener 50 mg PO DAILY PRN 07/11/19 07/18/19 07/10/19 rivaroxaban [Xarelto] 10 mg PO DAILY #7 tab 07/12/19 07/18/19 Unknown NPO Date Last Intake of Fluids: 07/10/19 Time Last Intake of Fluids: 21:00 Date Last Intake of Solids: 07/10/19 Time Last Intake of Solids: 19:30 Past Medical History Medical History Kidney stone (Chronic) Pyelonephritis (Chronic) Migraine headache hx. stopped with menopause Ophthalmic migraine rarely, follows with ophthalmogist. Osteoporosis Psoriasis Sjogrens syndrome Past Family History Family History Other No significant family history Past Surgical History Surgical History History of ankle surgery RT EXTERNAL FIXATOR AT PRESENT TIME History of dental surgery implants History of facial surgery as a child History of shoulder surgery right shoulder Social History Smoking Status: Former smoker tobacco type: cigarettes Do You Dip or Chew Tobacco: No Smoking End Date: 1970 Hx Alcohol Use: Yes Alcohol type: wine alcohol intake frequency: holidays/special occasions only Hx Substance Use: No substance use type: does not use Physical Exam Vital Signs Last Vital Signs Temp 37 C 07/13/19 15:14 Pulse 66 07/13/19 15:14 Resp 16 07/13/19 15:14 BP 152/96 H 07/13/19 15:14 Pulse Ox 99 07/13/19 15:14 Testing Laboratory Results 07/12/19 06:38 07/12/19 06:38 Electrocardiogram Date: 07/11/19 Findings: + NSR @ (98)
== END 2019-07-13 15:52 | disposition home health service (06) | DRG 494 ==
LOC: ASU 09:56 → 3E 14:18
DX: M35.00 Sjogren syndrome, unspecified; K21.9 Gastro-esophageal reflux disease without esophagitis; K44.9 Diaphragmatic hernia without obstruction or gangrene; W01.0XXA Fall on same level from slipping, tripping and stumbling without subsequent striking against object, initial encounter; Z88.6 Allergy status to analgesic agent; Y92.012 Bathroom of single-family (private) house as the place of occurrence of the external cause; S82.851A Displaced trimalleolar fracture of right lower leg, initial encounter for closed fracture